=== PATIENT | male | born 1960 | race African-American/Black ===

== ENCOUNTER 2019-03-08 13:05 | Emergency (ER) | payer OTHER ==
[2019-03-08 13:23] VITALS: BMI 28.0
[2019-03-08] MEDS ORDERED: OXYMETAZOLINE 0.05% NASAL SOLUTION 15 ML BOTTLE NS ONE (14:08)
--- NOTE | 2019-03-08 14:22 | PDOC ---
History of Present Illness - General Chief Complaint: Nasal Bleeding Stated Complaint: Nasal Bleeding Time Seen by Provider: 03/08/19 13:44 History Source: Patient Exam Limitations: No Limitations - History of Present Illness Initial Comments: 03/08/19 13:16 58-year-old male with no past medical history presents to ED with spontaneous nosebleed while at work today. 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 Patient denies usage of blood thinners, frequent recurrent nosebleeds or cauterization. Patient also denies headache currently dizziness, nausea or difficulty breathing. Patient states initially thought the bleeding would stop after applying pressure but when it continued he called EMS. Patient states has had nosebleeds before but never requiring medical intervention. Patient denies recent sinus infection, cocaine use or intranasal medication/drugs. Is this a multiple visit Asthma Patient?: No Timing/Duration: 1 hour Severity: mild Associated Symptoms: reports: denies symptoms Past History - Travel Traveled outside of the country in the last 30 days: No - Past Medical History Allergies/Adverse Reactions: Allergies Allergy/AdvReac Type Severity Reaction Status Date / Time No Known Allergies Allergy Verified 03/08/19 13:22 Home Medications: Ambulatory Orders NK [No Known Home Medication] 03/08/19 COPD: No - Psycho Social/Smoking Cessation Hx Smoking History: Never smoked Have you smoked in the past 12 months: No Information on smoking cessation initiated: No Hx Alcohol Use: No Drug/Substance Use Hx: No Patient Lives Alone: No Lives with/in: spouse/SO Review of Systems - Review of Systems Able to Perform ROS?: Yes Constitutional: No: Symptoms Reported HEENTM: Yes: Symptoms Reported, Nose Bleeding Respiratory: No: Symptoms reported Cardiac (ROS): No: Symptoms Reported ABD/GI: No: Symptoms Reported : No: Symptoms Reported Musculoskeletal: No: Symptoms Reported Integumentary: No: Symptoms Reported Neurological: No: Symptoms reported Hematologic/Lymphatic: No: Symptoms Reported *Physical Exam - Vital Signs Last Vital Signs Temp Pulse Resp BP Pulse Ox 99.0 F 91 H 16 113/78 100 03/08/19 13:05 03/08/19 13:05 03/08/19 13:05 03/08/19 13:05 03/08/19 13:05 - Physical Exam General Appearance: Yes: Nourished, Appropriately Dressed. No: Apparent Distress HEENT: positive: EOMI, Pharynx Normal, Other (Bright red blood noted via left nare). negative: Pale Conjunctivae Neck: positive: Supple Respiratory/Chest: positive: Lungs Clear, Normal Breath Sounds. negative: Respiratory Distress, Accessory Muscle Use Cardiovascular: positive: Regular Rhythm, Regular Rate. 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 Patient on no blood thinners. denies any intranasal medication/ drugs no history of recurrent epistaxis. Exam: Bright red blood noted via left nare no passage of large clots. Plan: Tongue depressor is placed for manual compression. If no improvement will use Afrin and provide Rhino Rocket's. Patient actively still bleeding via left ear greater than the right nare. Afrin applied. will reassess in 10-minute 03/08/19 14:52 Bleeding has subsided. Oropharynx clear. Patient given Afrin spray to take home with him and to use for the next 2 days. Patient also given referral to Dr. Bhatti. Discharge - Discharge Information Problems reviewed: Yes Clinical Impression/Diagnosis: Epistaxis Condition: Improved Disposition: HOME - Follow up/Referral Referrals: Leo Bhatti MD [Staff Physician] - - Patient Discharge Instructions Patient Printed Discharge Instructions: DI for Nosebleed, Nosebleeds ( Alternative Therapy) Additional Instructions: Please avoid any nose blowing, sneezing, or exertional activity including heavy laughing heavy lifting or sexual intercourse for the next 3 days. Please follow-up with ENT specialist Dr. Bhatti. Return to the ED if bleeding continues more than 10 minutes and unrelieved with Afrin 1-2 spray twice a day x 3 days. - Post Discharge Activity
[2019-03-08 15:02] VITALS: PULSE 92; TEMP 98.3
[2019-03-08 15:08] VITALS: BP 120/82
== END 2019-03-08 15:24 | disposition home or self-care (01) ==
LOC: JER 13:05
PROC: 093K7ZZ Control Bleeding in Nasal Mucosa and Soft Tissue, Via Natural or Artificial Opening (ICD-10-PCS; principal; 2019-03-08)
DX: R04.0 Epistaxis (principal)
CPT/HCPCS: 99282-25